=== PATIENT | female | born 1985 | race African-American/Black ===

== ENCOUNTER 2021-12-15 00:14 | Emergency (ER) | payer BC ==
[~2021-12-15] VITALS: Ht 157.5 cm; Wt 63.5 kg
--- NOTE | 2021-12-15 00:27 | NUR ---
BIBS C/O TACHYCARDIA W/ "TINGLINESS IN HANDS AND FEET" CP XFEW HOURS HR AT TRIAGE 132. PATIENT ALERT AND ORIENTED X3. AMBULATORY WITH NON LABORED BREATHING. PLACED IN BED 11 ON MONITOR IN A GOWN.
[2021-12-15] MEDS ORDERED: IV NS 0.9% 1,000 ML BAG IV ONE (00:30)
--- NOTE | 2021-12-15 00:30 | NUR ---
BLOOD COLLECTED AND SENT TO LAB
--- NOTE | 2021-12-15 00:30 | NUR ---
EMT @ BEDSIDE FOR EKG
--- NOTE | 2021-12-15 00:40 | NUR ---
URINE COLLECTED AND SENT TO LAB
--- NOTE | 2021-12-15 00:53 | NUR ---
PT SIGNED WAIVER FORM; NOTIFIED RADIOLOGY
[2021-12-15 00:55] LABS: BASOPHILS # (AUTO) 0.1 K/uL (0.0-0.2); BASOPHILS % (AUTO) 0.8 % (0.0-2.0); EOSINOPHILS % (AUTO) 2.4 % (0.0-6.0); HEMATOCRIT 44 % (33-45); HEMOGLOBIN 14.7 g/dL (11.5-14.8); LYMPHOCYTES # (AUTO) 4.3 K/uL (0.8-4.8); LYMPHOCYTES % (AUTO) 58.8 % (20.0-44.0); MEAN CORPUSCULAR HGB CONC 34 g/dl (31.0-36.0); MEAN CORPUSCULAR VOLUME 94 fL (82-100); MONOCYTES # (AUTO) 0.5 K/uL (0.1-1.30); MONOCYTES % (AUTO) 6.5 % (2.0-12.0); NEUTROPHILS # (AUTO) 2.3 K/uL (1.8-8.9); NEUTROPHILS % (AUTO) 31.5 % (43.0-81.0); PLATELET COUNT (AUTO) 364 K/uL (150-450); RED BLOOD CELL COUNT(AUTO) 4.65 MIL/uL (4.0-5.2); WHITE BLOOD COUNT (AUTO) 7.4 K/uL (4.3-11.0)
--- NOTE | 2021-12-15 01:10 | NUR ---
US TECH AT PT'S BEDSIDE
[2021-12-15 01:24] LABS: CALCIUM, SERUM 8.4 mg/dL (8.5-10.1); CARBON DIOXIDE 25 mmol/L (21-32); CHLORIDE 104 mmol/L (98-107); CREATININE 0.8 mg/dL (0.6-1.3); GLUCOSE 93 mg/dL (74-106); POTASSIUM 3.6 mmol/L (3.5-5.1); SODIUM SERUM 137 mmol/L (136-145); UREA NITROGEN, BLOOD 9 mg/dL (7-18)
[2021-12-15] MEDS ORDERED: IOHEXOL-350 100 ML VIAL IV ONE (01:39)
[2021-12-15] MEDS ORDERED: IV NS 0.9% 250 ML IV ONE (01:39)
--- NOTE | 2021-12-15 01:47 | NUR ---
PT TAKEN TO [facility]A VIA KT
[2021-12-15 04:10] VITALS: BP 130/87
--- NOTE | 2021-12-15 04:10 | NUR ---
Patient discharged to home in stable condition. Written and verbal after care instructions given. Patient verbalizes understanding of instruction. IV removed. Catheter intact and site benign. Pressure and 4x4 applied to site. No bleeding noted. PT ambulatory with a steady gait
== END 2021-12-15 04:11 | disposition home or self-care (01) ==
LOC: ER 00:37
DX: R07.89 Other chest pain (principal); R20.2 Paresthesia of skin
CPT/HCPCS: 36415; 71275; 80048; 84484; 84703; 85025; 93005; 93971; 96360; 99285; J7030; J7050; Q9967